=== PATIENT | female | born 1970 | race Caucasian/White ===

== ENCOUNTER 2022-04-05 10:43 | Emergency (ER) | payer OTHER ==
[2022-04-05] MEDS ORDERED: OMNICEF 300 MG300 MG PO (14:32)
== END 2022-04-05 14:58 | disposition home or self-care (01) ==
LOC: ER1 10:43
DX: S92.511B Displaced fracture of proximal phalanx of right lesser toe(s), initial encounter for open fracture (principal); W23.0XXA Caught, crushed, jammed, or pinched between moving objects, initial encounter
CPT/HCPCS: 12002; 64450; 73630; 99283; J0690; J1885